=== PATIENT | female | born 1990 | race American Indian/Alaskan Native ===

== ENCOUNTER 2019-01-19 15:42 | Emergency (ER) | payer OTHER ==
[2019-01-19 16:12] VITALS: BP 112/77
--- NOTE | 2019-01-19 16:16 | Emergency Department Report ---
Chief Complaint: Dental/Oral Stated Complaint: MOUTH/EAR PAIN Time Seen by Provider: 01/19/19 16:11 - HPI History of Present Illness: This is a 28-year-old female presents to the emergency room with right side upper dental pain for 2 days. Patient reports pain is radiating from tooth to her right ear and worse with eating. She has tried ibuprofen for pain with no improvement of symptoms. Patient states she had 2 teeth feel in October by her dentist in [place]. Patient states she called her dental office and he told her to follow-up in the emergency room until she returns home next week. She denies difficulty swallowing, tonsillar swelling, hoarseness, drooling, fever, cough, and change in hearing. - ROS Review of Systems: ENT: dental pain, right ear pain. denies: throat pain - Exam Vital Signs: Vital Signs 01/19/19 16:11 Temperature 99 F Pulse Rate 87 Respiratory 18 Rate Blood Pressure 112/77 O2 Sat by Pulse 99 Oximetry Physical Exam: GENERAL: The patient is well looking, in no acute distress. HEENT: buccal swelling around #3 & #4, tenderness, dark brown caries center tooth, no palpable cyst pockets. Atraumatic and normocephalic. Pupils are equal, round, reactive to light, and accommodation. Extraocular movements are intact. There is no icterus, cyanosis, or pallor of the conjunctivae. Tympanic membranes normal bilaterally. Nasal turbinates are clear without exudates. Sinuses nontender to percussion. Posterior pharynx is normal. No exudates are noted. CHEST: Air entry is adequate bilaterally with no rhonchi, and crackles. HEART: Sounds 1 and 2 are heard and are normal. Regular rate and rhythm, no tachycardic, murmurs, gallops, or rubs. ABDOMEN: Soft and nontender. Bowel sounds are present and normal. There is no hepatosplenomegaly. SKIN: Without rash. EXTREMITIES: Without edema, cyanosis, or clubbing. MSE screening note: Focused history and physical exam performed. Due to findings the following was ordered: ED Medical Decision Making - Medical Decision Making Patient is stable and was examined by me. Given tramadol once in ER. Susceptible of dental caries. Findings susceptible dental caries #3 and 4. Start amoxicillin, tramadol, and naproxen. Discussed plan with patient. Patient will follow-up with her dentist in [place] after discharge. She agreed with ER plan. Discharged home stable. Follow up with dentist. ED Disposition for MSE Clinical Impression: Toothache, Dental caries, Otalgia of right ear Disposition: TO HOME OR SELFCARE Is pt being admited?: No Does the pt Need Aspirin: No Condition: Stable Instructions: Dental Caries (ED), Toothache (ED) Additional Instructions: Complete all days of antibiotics as prescribed for 7 days. Follow up with your dentist in [place] as discussed. Return to emergency room if worsening symptoms as discussed. Prescriptions: Ibuprofen [Motrin 800 MG tab] 800 mg PO Q8HR PRN #20 tablet PRN Reason: Pain, Moderate (4-6) Amoxicillin [Trimox CAP] 500 mg PO Q8H #21 capsule traMADol [Ultram 50 MG tab] 50 mg PO Q6HR PRN #12 tablet PRN Reason: Pain Referrals: [facility] [Outside] - 3-5 Days [facility] [Outside] - 3-5 Days Time of Disposition: 16:33
[2019-01-19] MEDS ORDERED: ULTRAM PO ONE (16:40)
== END 2019-01-19 16:44 | disposition home or self-care (01) ==
LOC: ED 15:42
DX: K02.9 Dental caries, unspecified (principal); H92.01 Otalgia, right ear; Z91.048 Other nonmedicinal substance allergy status
CPT/HCPCS: 99282